=== PATIENT | male | born 1990 | race African-American/Black ===

== ENCOUNTER 2016-04-12 12:18 | Emergency (ER) | payer OTHER ==
[2016-04-12 12:29] VITALS: BP 130/88
[2016-04-12] MEDS ORDERED: Ondansetron INJ* 2 MG/ML VIAL IV ONE (12:46)
[2016-04-12] MEDS ORDERED: Morphine INJ* 4 MG/ML 1 ML CARPUJECT IV ONE (12:46)
[2016-04-12] MEDS ORDERED: oxyCODONE/Acetamin 5/325 MG* TAB PO ONE (13:14)
--- NOTE | 2016-04-12 13:35 | RAD ---
INDICATION: Left-sided facial trauma. COMPARISON: There are no prior studies available for comparison. TECHNIQUE: Contiguous axial sections of the axial images of the facial bones were obtained and reconstructed in the coronal and sagittal planes. FINDINGS: There is soft tissue swelling present along the lateral aspect of the face on the left side adjacent to the zygomatic arch and mandible. The vazquez of the orbits and maxillary sinuses appear intact. The zygomatic arches appear intact. There is no evidence for a fracture of the mandible. The nasal bones appear intact. There is moderate to severe deviation of the nasal septum toward the right side. The pterygoid plates appear intact. There is mild mucosal thickening within the maxillary, ethmoid and frontal sinuses. The sphenoid sinus and mastoid air cells appear clear. IMPRESSION: 1. SOFT TISSUE SWELLING IN THE FACE ON THE LEFT SIDE, NO FRACTURE IS SEEN. 2. FINDINGS SUGGESTIVE OF CHRONIC SINUSITIS.
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
--- NOTE | 2016-04-12 14:44 | RAD ---
INDICATION: Head injury. COMPARISON: There are no prior studies available for comparison. TECHNIQUE: Contiguous axial sections of the brain were obtained from the skull base to the vertex without contrast. The exam is slightly limited due to motion artifact. FINDINGS: The ventricles, cisterns and sulci are within normal limits. No significant focal abnormality or mass effect is seen. There is no evidence for hemorrhage. There is no evidence for fracture. IMPRESSION: SLIGHTLY LIMITED EXAM, NO EVIDENCE FOR ACUTE INTRACRANIAL ABNORMALITY.
== END 2016-04-12 15:22 | disposition home or self-care (01) ==
LOC: ED 12:18
DX: S00.83XA Contusion of other part of head, initial encounter (principal); W22.8XXA Striking against or struck by other objects, initial encounter; Y92.9 Unspecified place or not applicable
CPT/HCPCS: 70450; 70486; 99282; A9270-GY